=== PATIENT | male | born 1955 | race Caucasian/White ===

== ENCOUNTER → 2023-09-18 08:19 | Outpatient (REF) | payer OTHER, SELFPAY | LOC: RAD 08:19 | PROVIDERS: ATTENDING PHYSICIAN Physician Assistant | DX: R91.1 Solitary pulmonary nodule (principal) | CPT/HCPCS: 71250 ==

== ENCOUNTER → 2023-10-12 06:25 | Day surgery (SDC) | payer OTHER, SELFPAY | LOC: GI 06:25 | PROVIDERS: ATTENDING PHYSICIAN Internal Medicine Gastroenterology | DX: Z12.11 Encounter for screening for malignant neoplasm of colon (principal); K57.30 Diverticulosis of large intestine without perforation or abscess without bleeding; K64.8 Other hemorrhoids; Z86.010 Personal history of colon polyps | CPT/HCPCS: G0105 ==

== ENCOUNTER 2024-03-01 14:38 | Emergency (ER) | payer MEDICARE, OTHER, SELFPAY ==
[2024-03-01 14:40] VITALS: BP 169/88
--- NOTE | 2024-03-01 16:11 | ED.GENMED ---
History of Present Illness
<Rohan Thorne Jr., PA-C - Last Filed: 03/01/24 16:31>
General
Chief Complaint: Musculo-Skeletal Complaint
Source: patient
Exam Limitations: none
Time Seen by Provider: 03/01/24 15:10
Nursing documentation reviewed up to this point in time: agreed with
History of Present Illness
History of Present Illness:
69-year-old male presenting to the emergency department today with concerns of left-sided wrist discomfort after falling backward 2 days ago. Ongoing swelling discomfort to the area. Denies any numbness weakness. Discomfort mainly to the wrist
and proximal hand. No breaks in the skin. Did not sustain any additional injuries. Not on blood thinners.
Review of Systems
<Rohan Thorne Jr., PA-C - Last Filed: 03/01/24 16:31>
Review of Systems
Allergies reviewed?: Yes
All Other Systems: ROS reviewed and negative except as documented in HPI and ROS
Phy Exam
<Rohan Thorne Jr., PA-C - Last Filed: 03/01/24 16:31>
Physical Exam
Physical Exam:
GENERAL: Alert , in no apparent distress
EYE: pupils equal and reactive
NECK: Supple, no significant adenopathy.
ENT: o/p clr, mmm.
CARDIAC: Regular rate and rhythm .
LUNGS: Clear breath sounds bilaterally, no acute respiratory distress, no wheezes/rales/rhonchi
ABDOMEN: Soft, without focal tenderness, no r/g, no cvat
NEUROLOGICAL: Alert and oriented, no focal neuro deficits
SKIN: Warm and dry, skin intact.
MUSCULOSKELETAL: Some swelling mainly to the dorsal aspect of the left hand some mild discomfort to the overlying the wrist no tenderness to the mid forearm or proximal good range of motion strength of the wrist good typewriter assembler strength normal elbow range
of motion, well perfused.
PSYCH: Normal and appropriate interaction.
Course
<Rohan Thorne Jr., PA-C - Last Filed: 03/01/24 16:31>
Orders/Labs/Results
Orders:
Orders
03/01/24 14:42
Hand, Left 3 View [CR Hand - Left Min 3 Views] Urgent
Comment:
Reason For Exam: swelling
03/01/24 16:11
Tino Wrap Left-Treatment ONCE
Vital Signs
Initial and Last Documented VS:
Initial Vital Signs
Temp Pulse Resp BP Pulse Ox
98.4 F 59 18 169/88 99
03/01/24 14:40 03/01/24 14:40 03/01/24 14:40 03/01/24 14:40 03/01/24 14:40
Last Documented Vital Signs
Temp Pulse Resp BP Pulse Ox
98.4 F 67 18 122/97 100
03/01/24 14:40 03/01/24 16:19 03/01/24 16:19 03/01/24 16:19 03/01/24 16:19
<Vidhi Méndez DO - Last Filed: 03/01/24 20:26>
Orders/Labs/Results
Orders:
Orders
03/01/24 14:42
Hand, Left 3 View [CR Hand - Left Min 3 Views] Urgent
Comment:
Reason For Exam: swelling
03/01/24 16:11
Tino Wrap Left-Treatment ONCE
Vital Signs
Initial and Last Documented VS:
Initial Vital Signs
Temp Pulse Resp BP Pulse Ox
98.4 F 59 18 169/88 99
03/01/24 14:40 03/01/24 14:40 03/01/24 14:40 03/01/24 14:40 03/01/24 14:40
Last Documented Vital Signs
Temp Pulse Resp BP Pulse Ox
98.4 F 67 18 122/97 100
03/01/24 14:40 03/01/24 16:19 03/01/24 16:19 03/01/24 16:19 03/01/24 16:19
<Rohan Thorne Jr., PA-C - Last Filed: 03/01/24 16:31>
MDM/Problems Addressed
MDM/Problems Addressed:
69-year-old male presenting to the emergency department today with concerns of ongoing swelling discomfort to the left hand and wrist after a fall 2 days ago. Here x-ray performed signs of fracture. Able to range fully good typewriter assembler strength no breaks
in the skin no specific focal tenderness. Symptoms seem to be most consistent with a sprain. Neuro vastly intact on examination stable for outpatient management return precautions given.
<Vidhi Méndez DO - Last Filed: 03/01/24 20:26>
MDM/Problems Addressed
MDM/Problems Addressed:
69-year-old male presenting to the emergency department today with concerns of ongoing swelling discomfort to the left hand and wrist after a fall 2 days ago. Here x-ray performed no signs of fracture. Able to range fully good typewriter assembler strength no
breaks in the skin no specific focal tenderness. Symptoms seem to be most consistent with a sprain. Neuro vastly intact on examination stable for outpatient management return precautions given.
<Rohan Thorne Jr., PA-C - Last Filed: 03/01/24 16:31>
*Critical Care Note
Total Time (30-74mins, 75-104mins- exclusive of procedures): Not Applicable
ED Attending Note
<Rohan Thorne Jr., PA-C - Last Filed: 03/01/24 16:31>
-
Portions of this chart may have been created with voice recognition software.� Occasional wrong word or��sound alike� substitutions may have occurred due to the inherent limitations of voice recognition software.
Discharge Plan
Departure
Patient Disposition: Home (Routine Discharge)
Date of Disposition: 03/01/24
Time of Disposition: 16:12
Patient with high blood pressure during this ER visit?: No
Condition: Good
Covid-19: Not Applicable
Discharge Problem:
Sprain of left wrist
Instructions: Wrist Sprain ED
Referrals:
Pedro Whitmore MD [Active] - Follow up in 5-7 days
Rafi Figueroa DO [Family Provider] -
Activity Restrictions/Additional Instructions:
You came to the emergency department today with concerns of left-sided wrist discomfort. Here an x-ray without signs of fracture. This is likely a sprain. Please rest ice compress and elevate over the next week or so as this should be improving.
Please follow closely with the hand doctor as needed.
Interventions
Interventions:
*Risk Screen - Suicide Last Done: 03/01/24 14:40
*General Assessment Last Done: 03/01/24 14:40
*Neglect/Abuse Screening Last Done: 03/01/24 14:40
*ED COVID-19 Vaccine History Last Done: 03/01/24 14:40
*Nursing Disposition Last Done: 03/01/24 16:19
ED-Musculoskeletal Assessment Last Done: 03/01/24 15:30
Discharge Date and Time
Discharge Date/Time: 03/01/24 16:22
Print Language: [email or web address]
[2024-03-01 16:19] VITALS: BP 122/97
== END 2024-03-01 16:22 | disposition home or self-care (01) ==
LOC: EMR 14:38
PROVIDERS: EMERGENCY PHYSICIAN Emergency Medicine; FAMILY PHYSICIAN Internal Medicine
DX: S63.502A Unspecified sprain of left wrist, initial encounter (principal); W19.XXXA Unspecified fall, initial encounter
CPT/HCPCS: 99283; 73130

== ENCOUNTER → 2024-09-20 07:09 | Outpatient (REF) | payer MEDICARE, OTHER, SELFPAY ==
[2024-09-20 09:33] LABS: Hematocrit 44.0 % (39.0-52.0); Hemoglobin 14.3 g/dL (13.0-18.0); Mean Corp Hgb Conc. 32.5 g/dL (33.0-37.0); Mean Corpuscular Volume 91.7 fL (80.0-94.0); Nucleated Red Blood Cells % 0 % (-); Platelet Count 226 10^3/uL (130-400); Red Cell Dist. Width 12.5 % (11.5-14.5)
[2024-09-20 10:09] LABS: ALT (SGPT) 25 U/L (0-50); AST (SGOT) 24 U/L (17-59); Albumin 4.4 g/dl (3.5-5.0); Alkaline Phosphatase 54 U/L (38-126); Blood Urea Nitrogen 22 mg/dl (9-20); Calcium 9.7 mg/dl (8.4-10.2); Carbon Dioxide 31 mmol/L (22-30); Chloride 106 mmol/L (98-107); Glucose 116 mg/dl (70-99); HDL Cholesterol 50 mg/dl; LDL Cholesterol, Calculated 129 mg/dl; Potassium 4.3 mmol/L (3.5-5.1); Sodium 144 mmol/L (135-145); Total Protein 7.1 g/dl (6.3-8.2); Very Low Density Lipoprotein 25 mg/dl (0-30); eGFR > 60.00
[2024-09-20 10:40] LABS: PSA, Total - Diagnostic 5.89 ng/ml (0.0-4.0)
[2024-09-20 11:54] LABS: Glycohemoglobin (HgbA1c) 6.0 % (4.0-5.6)
== END ==
LOC: HWRCS 07:09
PROVIDERS: ATTENDING PHYSICIAN Internal Medicine Cardiovascular Disease; FAMILY PHYSICIAN Internal Medicine; REFERRING PHYSICIAN Specialist
DX: I77.810 Thoracic aortic ectasia (principal); E78.2 Mixed hyperlipidemia; R73.01 Impaired fasting glucose; R97.20 Elevated prostate specific antigen [PSA]; E66.01 Morbid (severe) obesity due to excess calories; R05.3 Chronic cough; I10 Essential (primary) hypertension; J30.2 Other seasonal allergic rhinitis; R91.1 Solitary pulmonary nodule; R73.03 Prediabetes
CPT/HCPCS: 36415; 80053; 80061; 83036; 84153; 84443; 85025; 93306

== ENCOUNTER → 2024-10-17 07:58 | Outpatient (REF) | payer MEDICARE, OTHER, SELFPAY | LOC: HWRAD 07:58 | PROVIDERS: ATTENDING PHYSICIAN Internal Medicine Cardiovascular Disease; FAMILY PHYSICIAN Internal Medicine | DX: E78.2 Mixed hyperlipidemia (principal) | CPT/HCPCS: 75571 ==

== ENCOUNTER → 2025-01-09 08:14 | Outpatient (REF) | payer MEDICARE, OTHER, SELFPAY | LOC: MRI 3T 08:14 | PROVIDERS: ATTENDING PHYSICIAN Urology; FAMILY PHYSICIAN Internal Medicine | DX: R97.20 Elevated prostate specific antigen [PSA] (principal) | CPT/HCPCS: 72197; A9575 ==